=== PATIENT | male | born 1950 | race Caucasian/White ===

== ENCOUNTER 2023-09-25 22:00 | Inpatient (IN) | payer MEDICARE, SELFPAY ==
[2023-09-25 17:19] VITALS: BP 128/84
[2023-09-25 17:37] LABS: % Basophils 0.6 % (0-2); % Eosinophils 3.3 % (0-6); % Immature Granulocytes 0.3 % (0-0.5); % Lymphocytes 18.7 % (20.5-51.1); % Monocytes 7.4 % (1.7-9.3); % Neutrophils 69.7 % (42.2-75.2); Absolute Basophils 0.1 10^3/uL (0-0.2); Absolute Eosinophils 0.3 10^3/uL (0-0.7); Absolute Lymphocytes 1.8 10^3/uL (1.2-3.4); Absolute Monocytes 0.7 10^3/uL (0.1-0.6); Absolute Neutrophils 6.6 10^3/uL (1.4-6.5); Hematocrit 37.2 % (39.0-52.0); Hemoglobin 12.6 g/dL (13.0-18.0); Mean Corp Hgb Conc. 33.9 g/dL (33.0-37.0); Mean Corpuscular Hgb 30.1 pg (27.0-31.0); Mean Corpuscular Volume 88.8 fL (80.0-94.0); Mean Platelet Volume 8.7 fL (7.4-10.4); Nucleated Red Blood Cells % 0 % (-); Platelet Count 178 10^3/uL (130-400); Red Blood Cell Count 4.19 10^6/uL (4.70-6.10); Red Cell Dist. Width 14.1 % (11.5-14.5); White Blood Cell Count 9.4 10^3/uL (4.8-10.8)
[2023-09-25 17:49] LABS: Lactic Acid 0.9 mmol/L (0.7-2.0)
[2023-09-25 17:51] LABS: ALT (SGPT) 27 U/L (0-50); AST (SGOT) 35 U/L (17-59); Albumin 4.2 g/dl (3.5-5.0); Alkaline Phosphatase 64 U/L (38-126); Blood Urea Nitrogen 17 mg/dl (9-20); Calcium 9.3 mg/dl (8.4-10.2); Carbon Dioxide 28 mmol/L (22-30); Chloride 102 mmol/L (98-107); Glucose 116 mg/dl (70-99); Sodium 137 mmol/L (135-145); Total Bilirubin 1.1 mg/dl (0.2-1.3); Total Protein 7.1 g/dl (6.3-8.2); eGFR > 60.00
--- NOTE | 2023-09-25 19:45 | ED.GENMED ---
History of Present Illness
<DEBORAH Lucas - Last Filed: 09/25/23 21:07>
General
Chief Complaint: Skin Problem
Source: patient
Exam Limitations: none
Time Seen by Provider: 09/25/23 19:27
Nursing documentation reviewed up to this point in time: agreed with
Travel History
Have you had any contact with someone who has COVID-19?: No
Do you have any symptoms of coronavirus? Fever > 100 degrees, chills, cough, shortness of breath, sore throat, loss of taste or smell, muscle aches, or headache?: No
History of Present Illness
History of Present Illness:
Patient is a 73-year-old male history of mitral valve prolapse who presents to the ER for evaluation. 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 Several days ago patient started with pain and redness to the
area he saw PAC at dermatology office yesterday and was prescribed doxycycline. He has taken a total of 3 doses however he reports symptoms have gotten worse. He complains of increasing redness swelling and pain to the area. He denies any fever
or chills.
Past History
<DEBORAH Lucas - Last Filed: 09/25/23 21:07>
Past History
ED Past Medical History: Other (Mitrol valve problems)
ED Past Surgical History: None
Social History
Tobacco: Non-smoker
Alcohol: Occasional
Personal: Single (Lives with someone for the past 20 years)
Living: with family
Review of Systems
<DEBORAH Lucas - Last Filed: 09/25/23 21:07>
Review of Systems
Allergies reviewed?: Yes
All Other Systems: ROS reviewed and negative except as documented in HPI and ROS
Constitutional: Reports no symptoms; Denies fever, fatigue or chills
: Reports no symptoms
Musculoskeletal: Reports no symptoms
Skin: Reports other ( pain redness to surgical site on right back )
Neurological: Reports no symptoms
Psychiatric: Reports no symptoms
Phy Exam
<DEBORAH Lucas - Last Filed: 09/25/23 21:07>
General Physical Exam
General Presentation: no apparent distress
General age: appears stated age
General Skin: warm and dry
General Habitus: normal
General Mental: alert
General Hydration: appears well hydrated
Neurological Exam
Neurological Exam: alert and oriented x3
Renuka Coma Scale
Eye Opening: Spontaneous
Verbal Response: Oriented
Motor Response: Obeys Commands
GCS Total Score: 15
Musculoskeletal Exam
Musculoskeletal Exam: full ROM
Skin Exam
Skin Exam: normal color, warm/dry and other (Patient with surgical wound to right mid to lower back with sutures in place no dehiscence or drainage however obvious swelling induration and erythema surrounding wound)
Psychiatric Exam
Psychiatric Exam: normal mood/affect
<Rodriguez Hanley MD - Last Filed: 09/25/23 22:00>
Renuka Coma Scale
GCS Total Score: 15
Course
<DEBORAH Lucas - Last Filed: 09/25/23 21:07>
Orders/Labs/Results
Orders:
Orders
09/25/23 17:24
Complete Blood Count/With Diff Urgent
Comprehensive Metabolic Panel Urgent
Lactic Acid Q4H
Comment: ON ICE, CANCEL 2ND ORDER IF FIRST LACTIC ACID LEVEL <2
Blood Culture Q30M
STEPHIE Source: Blood/Venous
Specimen Description:
Comment: FROM 2 SEPARATE SITES
09/25/23 20:30
Blood Culture Q30M
STEPHIE Source: Blood/Venous
Specimen Description:
Comment: FROM 2 SEPARATE SITES
09/25/23 21:20
CeFAZolin 1 GRAM [Ancef] 1 gram in 5 ml IV NOW
09/25/23 21:38
Admit/Transfer Patient As Directed
Co-Sign Provider:
Level of Care: Inpatient admission
Assign to:: Medical/Surgical
Physician / Group: htay
Diagnosis: SSTI of surgical site at Rt mid to lower back - failed OP PO Doxycycline
Reason for Hospitalization: SSTI of surgical site at Rt mid to lower back - failed OP PO Doxycycline
Expected length of stay greater than two midnights?: Yes
ELOS- Estimated Length of Stay in days: 3
I certify the patient meets the requirements for IP care: Yes
09/25/23 21:39
Code Status As Directed
Resuscitation Status: Full Code
Abnormal Lab Results
09/25/23
17:24
RBC 4.19 L 10^6/uL
(4.70-6.10)
Hgb 12.6 L g/dL
(13.0-18.0)
Hct 37.2 L %
(39.0-52.0)
Absolute Neuts (auto) 6.6 H 10^3/uL
(1.4-6.5)
Absolute Monos (auto) 0.7 H 10^3/uL
(0.1-0.6)
Lymphocytes % 18.7 L %
(20.5-51.1)
Glucose 116 H mg/dl
(70-99)
09/25/23 17:24
09/25/23 17:24
Vital Signs
Initial and Last Documented VS:
Initial Vital Signs
Temp Pulse Resp BP Pulse Ox
98.3 F 77 17 128/84 98
09/25/23 17:19 09/25/23 17:19 09/25/23 17:19 09/25/23 17:19 09/25/23 17:19
Last Documented Vital Signs
Temp Pulse Resp BP Pulse Ox
98.3 F 67 18 139/70 98
09/25/23 17:19 09/25/23 21:30 09/25/23 21:30 09/25/23 21:30 09/25/23 21:30
Supervisor S[employer] consulted with Physician
Supervisor S[employer] consulted with physician?: Yes
Name of Physician Consulted: Dayan
<Rodriguez Hanley MD - Last Filed: 09/25/23 22:00>
Orders/Labs/Results
Orders:
Orders
09/25/23 17:24
Complete Blood Count/With Diff Urgent
Comprehensive Metabolic Panel Urgent
Lactic Acid Q4H
Comment: ON ICE, CANCEL 2ND ORDER IF FIRST LACTIC ACID LEVEL <2
Blood Culture Q30M
STEPHIE Source: Blood/Venous
Specimen Description:
Comment: FROM 2 SEPARATE SITES
09/25/23 20:30
Blood Culture Q30M
STEPHIE Source: Blood/Venous
Specimen Description:
Comment: FROM 2 SEPARATE SITES
09/25/23 21:20
CeFAZolin 1 GRAM [Ancef] 1 gram in 5 ml IV NOW
09/25/23 21:38
Admit/Transfer Patient As Directed
Co-Sign Provider:
Level of Care: Inpatient admission
Assign to:: Medical/Surgical
Physician / Group: htay
Diagnosis: SSTI of surgical site at Rt mid to lower back - failed OP PO Doxycycline
Reason for Hospitalization: SSTI of surgical site at Rt mid to lower back - failed OP PO Doxycycline
Expected length of stay greater than two midnights?: Yes
ELOS- Estimated Length of Stay in days: 3
I certify the patient meets the requirements for IP care: Yes
09/25/23 21:39
Code Status As Directed
Resuscitation Status: Full Code
Abnormal Lab Results
09/25/23
17:24
RBC 4.19 L 10^6/uL
(4.70-6.10)
Hgb 12.6 L g/dL
(13.0-18.0)
Hct 37.2 L %
(39.0-52.0)
Absolute Neuts (auto) 6.6 H 10^3/uL
(1.4-6.5)
Absolute Monos (auto) 0.7 H 10^3/uL
(0.1-0.6)
Lymphocytes % 18.7 L %
(20.5-51.1)
Glucose 116 H mg/dl
(70-99)
09/25/23 17:24
09/25/23 17:24
Vital Signs
Initial and Last Documented VS:
Initial Vital Signs
Temp Pulse Resp BP Pulse Ox
98.3 F 77 17 128/84 98
09/25/23 17:19 09/25/23 17:19 09/25/23 17:19 09/25/23 17:19 09/25/23 17:19
Last Documented Vital Signs
Temp Pulse Resp BP Pulse Ox
98.3 F 67 18 139/70 98
09/25/23 17:19 09/25/23 21:30 09/25/23 21:30 09/25/23 21:30 09/25/23 21:30
<DEBORAH Lucas - Last Filed: 09/25/23 21:07>
MDM/Problems Addressed
Differential Diagnosis Includes:
Not limited to cellulitis
MDM/Problems Addressed:
Patient is a 73-year-old male status post squamous cell cancer removed from right back 1 week ago start with days ago started on doxycycline yesterday for total of 3 doses but complete pain swelling redness. No fevers. Patient is nontoxic however
there is significant induration and erythema surrounding the area no drainage from suture site no dehiscence.
Patient eval by Dr. Hanley.
I attempted to reach his surgeon DR Beltran [place] . I spoke with commissioned police officer at [facility] who spoke with DR Gaviria who recommends admission and iv antibx.
<DEBORAH Lucas - Last Filed: 09/25/23 21:07>
*Pulse Oximetry
Patient hypoxic: no
*Critical Care Note
Total Time (30-74mins, 75-104mins- exclusive of procedures): Not Applicable
ED Attending Note
<DEBORAH Lucas - Last Filed: 09/25/23 21:07>
-
Portions of this chart may have been created with voice recognition software.� Occasional wrong word or��sound alike� substitutions may have occurred due to the inherent limitations of voice recognition software.
<Rodriguez Hanley MD - Last Filed: 09/25/23 22:00>
ED Attending Note
Patient seen and examined by attending physician: Yes
ED Attending Note:
Patient status post right squamous cell carcinoma removed from his right mid back at [facility] 1 week ago, presents to ED secondary to worsening pain, swelling, and redness over the past 3 days at incision site. Patient was seen by his
stunner animal yesterday and was prescribed doxycycline. Denies fever or chills. Denies nausea or vomiting. Denies open drainage.
Physical Exam
General: mild distress, not acutely ill. afebrile
Head: nc/at. eomi
Neck: supple. no meningeal signs.
Neuro: alert and oriented. no focal neurological deficits
Skin: sutures noted over right midback with surrounding erythema/swelling/tenderness, approx 5cm x 2cm. no open drainage.
Psychiatric: well kept. interactive and cooperative
Extremities: no edema. no calf tenderness.
Patient with worsening cellulitic changes with area of induration concerning for development of abscess. Patient will be admitted for IV antibiotics, failed outpatient therapy.
Discharge Plan
Departure
Patient Disposition: Admit
Date of Disposition: 09/25/23
Time of Disposition: 21:06
Admit to: Med/Surg
Admit to doctor: hospitalist
Presentation/result/management discussed w/ accepting MD/DO: Hospitalist
Patient with high blood pressure during this ER visit?: No
Condition: Fair
Covid-19: Not Applicable
Discharge Problem:
Cellulitis, wound, post-operative
Prescriptions:
No Action
multivitamin Tablet
1 tab PO DAILY
omeprazole 20 mg capsule,delayed release(DR/EC)
20 mg PO DAILY
doxycycline hyclate 100 mg tablet
100 mg PO BID
rosuvastatin 10 mg tablet
10 mg PO HS
icosapent ethyl [Vascepa] 1 gram capsule
1 g PO QID
Referrals:
Roman Milton MD [Family Provider] -
Interventions
Interventions:
*Risk Screen - Suicide Last Done: 09/25/23 20:05
*General Assessment Last Done: 09/25/23 20:05
*Neglect/Abuse Screening Last Done: 09/25/23 20:05
ED- Fall Risk Assessment Last Done: 09/25/23 20:05
ED-Skin Assessment Last Done: 09/25/23 20:05
Discharge Date and Time
Print Language: IVORIAN
[2023-09-25 21:15] VITALS: BMI 24.1
[2023-09-25 21:30] VITALS: BP 139/70
[2023-09-25] MEDS: ANCEF 5 IV (21:31)
--- NOTE | 2023-09-25 21:33 | HPS.HSE ---
Family Physician
-
Family Physician: Roman Milton
Chief Complaint
-
pain and redness at surgical started 3-4 days after MOHS surgery
History of Present Illness
73M HX MVR , recent MOHS surgery at Rt lower back for removal of squamous cell carcinoma 1 week ago
Seen at ER for evaluation of pain and redness at surgical site
- pain and redness started 3-4 days after MOHS surgery
- Seen at Derm surgeon and started on PO Doxycycline.
- No progress made s/p 3 doses of PO Doxy and came to ER
- Reports worsening f increasing redness swelling and pain to the area.
- No fever or chills.
Medical History
Past Medical History
Past Medical History: Reports None
Past Surgical History: Reports Other (recent MOHS surgery at Rt lower back for removal of squamous cell carcinoma )
Social History
Tobacco: Non-smoker
Alcohol: None
Drug: None
Family History
Family History: Not pertinent
Allergies / Home Medications
Allergies reflects when Allergies were last updated in [employer].
Home Medications with original date entered in [employer]
Allergy/Medication List:
Allergies
Allergy/AdvReac Type Severity Reaction Status Date / Time
amoxicillin [From Augmentin] Allergy Unknown Verified 09/25/23 21:07
clavulanic acid Allergy Unknown Verified 09/25/23 21:07
[From Augmentin]
Sulfa (Sulfonamide Allergy Unknown Verified 09/25/23 21:14
Antibiotics)
sulfamethoxazole Allergy Unknown Verified 09/25/23 21:14
trimethoprim Allergy Unknown Verified 09/25/23 21:14
Home Medications
doxycycline hyclate 100 mg tablet 100 mg PO BID 09/25/23
icosapent ethyl 1 gram capsule (Vascepa) 1 g PO QID 09/25/23
multivitamin 1 tab PO DAILY 09/25/23
omeprazole 20 mg capsule,delayed release 20 mg PO DAILY 09/25/23
rosuvastatin 10 mg tablet 10 mg PO HS 09/25/23
Review of Systems
-
Constitutional: Reports No Symptoms
EENT: Reports No Symptoms
Respiratory: Reports No Symptoms
Cardiac: Reports No Symptoms
Abdomen/GI: Reports No Symptoms
: Reports No Symptoms
Musculoskeletal: Reports No Symptoms
Skin: Reports See HPI
Neurological: Reports No Symptoms
Endocrine: Reports No Symptoms
Hematologic/Lymphatic: Reports No Symptoms
Psych: Reports No Symptoms
Physical Exam
Vital Signs
Vital Signs
Temp Pulse Resp BP Pulse Ox
98.3 F 77 17 128/84 98
09/25/23 17:19 09/25/23 17:19 09/25/23 17:19 09/25/23 17:19 09/25/23 17:19
Physical Exam
General: No Apparent Distress, Comfortable and Conversant
HEENT: NormoCephalic, Anicteric and Moist mucous membranes
Respiratory: Clear; No Wheezes, Rales or Rhonchi
Cardiac: S1/S2 and Regular Rhythm
GI: Soft, Non Tender, Non Distended and Normal Bowel Sounds
Genito-urinary: Deferred by me
Musculoskeletal: No Edema
Skin: Warm, Dry and Other (surgical wound to right mid to lower back with sutures in place no dehiscence or drainage however obvious swelling induration and erythema surrounding wound))
Neuro: AO x 3
Psych: Calm
Laboratory Results
-
09/25/23 17:24
09/25/23 17:24
Laboratory Results
Lactic Acid Cancelled 09/25/23 21:30
Total Bilirubin 1.1 mg/dl (0.2-1.3) 09/25/23 17:24
AST 35 U/L (17-59) 09/25/23 17:24
ALT 27 U/L (0-50) 09/25/23 17:24
Alkaline Phosphatase 64 U/L (38-126) 09/25/23 17:24
Data Reviewed
-
Lab Data: Labs Reviewed by me
Old Records: Reviewed
Impression/Plan
-
Reviewed VS: unremarkable
Data
nl WCC
Hgb 12.6 - bl is 14
nl CMP
BCx sent
NO PRIOR hospitalist admission
ASSESSMENT & PLAN
Pending Rx reconciliation
SSTI of surgical site at Rt mid to lower back - failed OP PO Doxycycline
Sutures in place no dehiscence or drainage
S/P recent MOHS surgery at Rt lower back for removal of squamous cell carcinoma 1 week ago
- Denied prior HX POS MRSA screen
- P derm DR Gaviria/ [facility] who spoke with
- s/p IV Ancef at ER and tolerates well
- cont. IV cefazolin in place of PO Doxy
- f/u BCx
HLD on Rosuvastatin
GERD on PO PPI
DVT Px: Ad yung
Code: full code
IP MS
[2023-09-25] MEDS: CRESTOR 10 MG PO (23:35)
[2023-09-26 06:36] LABS: Hematocrit 37.1 % (39.0-52.0); Hemoglobin 12.2 g/dL (13.0-18.0); Mean Corp Hgb Conc. 32.9 g/dL (33.0-37.0); Mean Corpuscular Hgb 30.3 pg (27.0-31.0); Mean Corpuscular Volume 92.3 fL (80.0-94.0); Mean Platelet Volume 9.3 fL (7.4-10.4); Platelet Count 167 10^3/uL (130-400); Red Blood Cell Count 4.02 10^6/uL (4.70-6.10); Red Cell Dist. Width 14.2 % (11.5-14.5); White Blood Cell Count 7.7 10^3/uL (4.8-10.8)
[2023-09-26] MEDS: THERAGRAN 1 TABLET PO (08:25)
[2023-09-26 08:26] VITALS: BP 128/87
[2023-09-26] MEDS: ANCEF 5 IV (10:17)
--- NOTE | 2023-09-26 13:04 | W.PN.HOSP.TC ---
Today's Communication/Plan
-
Switch antibiotics to IV vancomycin.
MRSA screen.
Follow culture data.
Assessment / Plan
Assessment / Plan
SSTI of surgical site at Rt mid to lower back - failed OP PO Doxycycline
Sutures in place no dehiscence or drainage
S/P recent MOHS surgery at Rt lower back for removal of squamous cell carcinoma 1 week ago
- Pt today tells me of possibilty of prior MRSA infection
- P derm DR Gaviria/ [facility] who spoke with
- s/p IV Ancef at ER
- Switch abx to IV Vanco pending cx data;MRSA screen
- f/u BCx
HLD on Rosuvastatin
GERD on PO PPI
DVT Px: Ad yung
Code: full code
Anticipated Discharge: > 48 hours
Subjective/Interval History
-
Date of Service: September 26, 2023
No fevers or chills today.
Denies any nausea vomiting.
Persistent pain over the incision site.
Objective Data
-
Labs:
Laboratory Results
09/26/23
06:00
WBC 7.7
Hgb 12.2 L
Hct 37.1 L
Plt Count 167
Vital Signs:
Vital Signs
Temp Pulse Resp BP Pulse Ox
98.2 F 67 14 128/87 98
09/26/23 08:26 09/26/23 08:26 09/26/23 08:26 09/26/23 08:26 09/25/23 21:30
Review of Systems
-
Constitutional: Denies Fever
EENT: Denies Sore Throat
Respiratory: Denies Cough or Trouble Breathing
Cardiac: Denies Chest Pain
Abdomen/GI: Denies Abdominal Pain, Nausea or Vomiting
Neuro: Denies Dizzy
Physical Exam
-
General: No Apparent Distress
HEENT: Moist Mucous Membranes
Respiratory: Clear to Auscultation and Non Labored Respirations; Negative Accessory Resp Muscle Use
GI: Soft
Skin: Other (Right lower posterior chest wall incision site swelling and redness noted. There is more swelling towards the lateral part of the incision. Incision suture line itself is clean without any discharge.)
Neuro: AO x 3
Data Reviewed
-
Labs: Labs Reviewed by me
[2023-09-26] MEDS: VANCOCIN 540 MG IV (13:12)
--- NOTE | 2023-09-26 13:13 | PHA.VAN.IN ---
Assessment
- Assessment
Renal Function: Appears similar to baseline
Concomitant Antimicrobials: no pertinent antibiotic allergies
AUC Dosing Plan
- Dosing Variables
Dosing Weight (kg): 76
Dosing CrCl (ml/min): 75
Vd coefficient (L/kg): 0.7
- Empiric Dosing
Initial / Loading Dose: 2000mg - 09/25 13:12
Maintenance Regimen: Vanc 750mg Q12H starting 09/26 06
Estimated AUC (mcg*h/mL): 437
Estimated Peak (mcg*h/mL): 25.6
Estimated Trough (mcg/ml): 12.3
Estimated Half Life (H): 10.4
- Monitoring
No levels ordered at this time: consider levels in next few days
Pharmacokinetics Vancomycin I
- -
Patient Age: 73
Patient Sex: Male
Vancomycin Day #: 1
Indication: Skin And Soft Tissue
Requesting Provider: Dr. Cueto
Pertinent Antimicrobial Allergies:
amoxicillin/clavulanic acid - unknown
sulfonamide antibiotics - unknown
Height / Weight:
Height 5 ft 10 in
Actual Weight 76.204 kg
Pertinent Past Medical History: recent MOHS surgery
- Vital Signs / Lab Results
Temp Pulse Resp BP Pulse Ox
98.2 F 67 14 128/87 98
09/26/23 08:26 09/26/23 08:26 09/26/23 08:26 09/26/23 08:26 09/25/23 21:30
Lab Results - Hematology
09/25/23 09/26/23
17:24 06:00
WBC 9.4 7.7
Lab Results - Chemistry
09/25/23
17:24
BUN 17
Creatinine 0.9
Albumin 4.2
09/25/23 09/25/23
17:24 21:30
Lactic Acid 0.9 Cancelled
[2023-09-26 14:57] VITALS: BP 113/79
[2023-09-26] MEDS: VANCOCIN 150 IV (18:21)
[2023-09-26 19:58] VITALS: BP 136/73
[2023-09-26] MEDS: TYLENOL 650 MG PO (19:58)
[2023-09-26 19:59] VITALS: BMI 24.3
--- NOTE | 2023-09-26 20:00 | PTCARENOTE ---
no delay received. aaox3. pt ambulated from to rm [id number]. vss. tylenol admin for right back pain. swelling and erythema noted to wound. sutures remain intact. pt updated on plan of care. call caal in reach. will monitor.
[2023-09-26] MEDS: CRESTOR 10 MG PO (22:23)
[2023-09-26 23:47] VITALS: BP 114/71
[2023-09-27] MEDS: VANCOCIN 150 IV ×2 (05:51→17:18)
[2023-09-27] MEDS: TYLENOL 650 MG PO ×3 (06:35→21:19)
[2023-09-27 07:15] VITALS: BP 116/66
--- NOTE | 2023-09-27 07:58 | PHA.VAN.FU ---
Addendum entered and electronically signed by Ana M Voss [facility] 09/27/23 15:31:
BUN & SCR ordered per protocol
Original Note:
Vancomycin Assessment / Plan
- Assessment
Renal Function: No New Labs Today
In the past 24 hrs, patient has been: Afebrile
- Dosing Plan
Continue: Vanc 750mg Q12H
- Monitoring Plan
No level(s) ordered at this time: consider levels in next few days
- Follow Up
Pharmacy will continue to follow.
Vancomycin Follow UP
- -
Patient Age: 73
Patient Sex: Male
Vancomycin Day #: 2
Indication: Skin And Soft Tissue
Requesting Provider: Dr. Cueto
Pertinent Antimicrobial Allergies:
amoxicillin/clavulanic acid - unknown
sulfonamide antibiotics - unknown
Height / Weight:
Height 5 ft 10 in
Actual Weight 76.771 kg
Pertinent Past Medical History: recent MOHS surgery
- Vital Signs / Lab Results
Temp Pulse Resp BP Pulse Ox
97.5 F 62 18 116/66 97
09/27/23 07:15 09/27/23 07:15 09/27/23 07:15 09/27/23 07:15 09/27/23 07:15
Lab Results - Hematology
09/25/23 09/26/23
17:24 06:00
WBC 9.4 7.7
Lab Results - Chemistry
09/25/23
17:24
BUN 17
Creatinine 0.9
Albumin 4.2
09/25/23 09/25/23
17:24 21:30
Lactic Acid 0.9 Cancelled
Microbiology Results
09/25/23 23:40 Blood Culture - Preliminary
Blood/Venous No Growth in 24 hours- Final report to follow
09/25/23 17:24 Blood Culture - Preliminary
Blood/Venous No Growth in 24 hours- Final report to follow
[2023-09-27] MEDS: THERAGRAN 1 TABLET PO (09:02)
--- NOTE | 2023-09-27 11:08 | W.PN.HOSP.TC ---
Today's Communication/Plan
-
Consult general surgery for I&D
Follow wound culture data
Continue with IV vancomycin
Assessment / Plan
Assessment / Plan
SSTI of surgical site at Rt mid to lower back - failed OP PO Doxycycline
S/P recent MOHS surgery at Rt lower back for removal of squamous cell carcinoma 1 week ago
- hx possibilty of prior MRSA infection
- P derm DR Gaviria/ [facility] who spoke with
- Not bacteremic so far
-Continue IV vancomycin. Follow wound culture data.
-Consult general surgery for I&D
HLD on Rosuvastatin
GERD on PO PPI
DVT Px: Ad yung
Code: full code
Anticipated Discharge: Within 24 hours
Subjective/Interval History
-
Date of Service: September 27, 2023
no fever or chills.
Still persistent pain with the wound.
Objective Data
-
Vital Signs:
Vital Signs
Temp Pulse Resp BP Pulse Ox
97.5 F 62 18 116/66 97
09/27/23 07:15 09/27/23 07:15 09/27/23 07:15 09/27/23 07:15 09/27/23 07:15
Review of Systems
-
Constitutional: Denies Fever
Respiratory: Denies Trouble Breathing
Cardiac: Denies Chest Pain
Abdomen/GI: Denies Nausea or Vomiting
Neuro: Denies Dizzy
Physical Exam
-
General: Comfortable
Respiratory: Non Labored Respirations; Negative Accessory Resp Muscle Use
Musculoskeletal: Other (left medial elbow area - small area of infiltrate with mild tenderness noted. No redness noted- follow clinically.)
Skin: Other (Surgical wound of the back - now softer in lower lateral part of wound and i see a ooze of pus from lower suture site. Still red and tender .)
Neuro: AO x 3
Data Reviewed
-
Labs: Labs Reviewed by me
--- NOTE | 2023-09-27 12:46 | CON.GS ---
Addendum entered and electronically signed by Daron Wade MD 09/27/23 13:50:
Patient seen and examined.
Patient is a 73 yo M POD#9 s/p Mohs procedure as an outpatient with a Gamer for SCC. He noted pain and redness to the site beginning about 3-4 days after the procedure and was re-evaluated at his Gamer's clinic and prescribed
Doxycycline. He noted worsening symptoms over the next 24 hours despite use of antibiotics and presented through the ED for evaluation. He was on IV Ancef initially without much benefit and was transitioned to IV Vancomycin given a questionable
history of MRSA infection in the past. Today, after showering, the distal end of the surgical wound began oozing purulent fluid. There is surrounding erythema and tenderness noted. He denies fevers or chills. He has had no leukocytosis.
Gen: NAD
Back: incision site with swelling, erythema, tenderness, mild purulent drainage laterally, interrupted Prolene, skin well approximated
Patient is a 73 yo M POD#9 s/p Mohs excision p/w wound infection
Postoperative skin and subcutaneous wound infection. Failure of medical management with antibiotics. Recommend surgical drainage (see separate note). The procedure itself, as well as the risks, benefits and alternatives was discussed. Verbal
consent obtained. All questions answered.
--Removal of sutures and drainage of back abscess
--ABX as per primary team, wound culture pending
--Daily wound ca I have cultures that just re with iodoform packing to site, cover with dry gauze dressing
--Follow-up with Gamer
Original Note:
Consultation
-
Date/Time Consultation Requested: 09/27/23 1106
Requesting Provider: Rom
Reason for Consultation: Surigical wound abscess
Medical History
-
Chief Complaint: back discomfort
History of Present Illness:
This is a 73 yo male s/p recent MOHs procedure to his right lower back as an outpatient with dermatology for management of SCC about 9 days ago. He noted pain and redness to the site beginning about 3-4 days after the procedure and was reevaluated
at his care coordinator's clinic and prescribed doxycycline. He noted worsening symptoms over the next 24 hours despite use of antibiotics and presented through the ED for evaluation. He was on IV Ancef initially without much benefit and was
transitioned to IV vancomycin given history of ?MRSA infection in the past. Today, after showering, the distal end of the surgical wound began oozing purulent fluid. There is surrounding erythema and tenderness noted. He denies fevers or chills. He
has had no leukocytosis.
Past Medical History
Past Medical History: Cancer (SCC of the skin s/p MOHS), GERD, Hypercholesterolemia and Valvular Disease (MV prolapse)
Past Surgical History: Hernia Repair (right inguinal), Orthopedic (for patellar fx) and Other (MOHS procedure 08/2023)
Social History
Tobacco: Non-Smoker
Family History
Family History: Reviewed & Not Pertinent
Allergies / Home Medications
Allergy/AdvReac Type Severity Reaction Status Date / Time
amoxicillin [From Augmentin] Allergy Unknown Verified 09/25/23 21:07
clavulanic acid Allergy Unknown Verified 09/25/23 21:07
[From Augmentin]
Sulfa (Sulfonamide Allergy Unknown Verified 09/25/23 21:14
Antibiotics)
sulfamethoxazole Allergy Unknown Verified 09/25/23 21:14
trimethoprim Allergy Unknown Verified 09/25/23 21:14
�Medication �Instructions �Recorded �Confirmed �Type
doxycycline hyclate 100 mg tablet 100 mg PO BID Infection 09/25/23 09/25/23 History
icosapent ethyl 1 gram capsule 1 g PO QID High Cholesterol 09/25/23 09/25/23 History
(Vascepa)
multivitamin 1 tab PO DAILY Supplement 09/25/23 09/25/23 History
omeprazole 20 mg capsule,delayed 20 mg PO DAILY Gastrointestinal 09/25/23 09/25/23 History
release Issue
rosuvastatin 10 mg tablet 10 mg PO HS High Cholesterol 09/25/23 09/25/23 History
Review of Systems
-
History Source: Patient
All other systems: Negative unless noted
A 10 point review of systems was completed, and was negative except as per HPI.
Physical Exam
Vital Signs
Temp Pulse Resp BP Pulse Ox
97.5 F 62 18 116/66 97
09/27/23 07:15 09/27/23 07:15 09/27/23 07:15 09/27/23 07:15 09/27/23 08:00
09/26/23 09/27/23 09/28/23
06:59 06:59 06:59
Actual Weight 76.204 kg 76.771 kg
Body Mass Index (BMI) 24.3
Lab Results
09/26/23 06:00
09/25/23 17:24
WBC 7.7 10^3/uL (4.8-10.8) 09/26/23 06:00
Hgb 12.2 g/dL (13.0-18.0) L 09/26/23 06:00
Hct 37.1 % (39.0-52.0) L 09/26/23 06:00
Plt Count 167 10^3/uL (130-400) 09/26/23 06:00
Abs Immat Gran (auto) 0.0 10^3/uL (0-0.05) 09/25/23 17:24
Neutrophils % 69.7 % (42.2-75.2) 09/25/23 17:24
Physical Exam
General: Well Developed, Well Nourished and No Apparent Distress
HEENT: Moist Mucous Membranes
Respiratory: Non Labored Respirations
GI: Soft and Non Tender
Skin: Warm, Dry and Other (right back with lateral incision closed simple interrupted sutures. Erythema noted with induration. )
Neuro: Awake, Alert and AO x 3
Psych: Calm
Assessment / Plan
-
This is a 73 yo male s/p recent MOHs procedure to his right lower back as an outpatient with dermatology for management of SCC about 9 days ago. He noted pain and redness to the site beginning about 3-4 days after the procedure and was reevaluated
at his care coordinator's clinic and prescribed doxycycline. Not much benefit over 24 hours after initiation causing him to present. He was initially on Ancef and now on vancomycin for broader coverage. AFVSS. Labs without leukocytosis.
--Several sutures removed from incision with I&D done at bedside with manjula pus noted (see surgeon's note for full details)
--Send wound culture
--ABX as per primary team
--Daily wound care with iodoform packing to site, cover with dry gauze dressing
--- NOTE | 2023-09-27 13:50 | W.PN.SURGUPD ---
Surgical Update
Surgical Update
Drainage of skin and subcutaneous abscess of back following Mohs procedure.
Area was prepped using Betadine. RIGHT lateral sutures removed x 3. Upon probing of the wound with Q-tip releasing significant amount of purulence. Culture obtained. Opening into abscess pocket > 1 cm. Medial 2 Prolene sutures remain in place.
Compression used to evacuate purulence. Wound irrigated with saline. Corner of gauze 4 x 4 packed into wound. Dressing in the form of gauze and tape was applied. Patient tolerated the procedure well though with some discomfort.
-- Daily dressing changes with Iodoform packing covered with gauze and tape
-- Abx per Hospitalist, wound culture obtained
-- Outpatient follow-up with Dermatology
[2023-09-27 15:00] VITALS: BP 127/67
--- NOTE | 2023-09-27 16:48 | CM ---
Addendum entered by Esme Delgado 09/27/23 16:58:
Patient does not want his doing any wound care. CM explained that VN are generally 2-3x/week. Frequency of wound care TBD.
Original Note:
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
hospitalizations. Pharmacy is [facility] on [facility] [place] in [place] and PCP is Dr. Roman Milton. Anticipate will need VN for wound care. Agreeable to [facility] VN. Referral will be forwarded.
[2023-09-27] MEDS: FLUSH (NSS) 2 FLUSH IV (17:20)
[2023-09-27] MEDS: CRESTOR 10 MG PO (21:17)
[2023-09-27 23:18] VITALS: BP 121/66
[2023-09-28] MEDS: VANCOCIN 150 IV ×2 (05:49→17:01)
[2023-09-28 06:12] LABS: Blood Urea Nitrogen 18 mg/dl (9-20); Estimated Creatinine Clearance 85 ml/min
[2023-09-28 06:55] VITALS: BP 115/66
--- NOTE | 2023-09-28 08:44 | PHA.VAN.FU ---
Vancomycin Assessment / Plan
- Assessment
Renal Function: Stable
WBC's are: WNL
In the past 24 hrs, patient has been: Afebrile
- Dosing Plan
Continue: Vanc 750 mg q12
- Monitoring Plan
Peak Level: 09/27 2029
Trough Level: 09/28 0430
- Follow Up
Pharmacy will continue to follow.
Vancomycin Follow UP
- -
Patient Age: 73
Patient Sex: Male
Vancomycin Day #: 3
Indication: Skin And Soft Tissue
Requesting Provider: Dr. Cueto
Pertinent Antimicrobial Allergies:
amoxicillin/clavulanic acid - unknown
sulfonamide antibiotics - unknown
Height / Weight:
Height 5 ft 10 in
Actual Weight 76.771 kg
Pertinent Past Medical History: recent MOHS surgery
- Vital Signs / Lab Results
Temp Pulse Resp BP Pulse Ox
97.6 F 59 16 115/66 95
09/28/23 06:55 09/28/23 06:55 09/28/23 06:55 09/28/23 06:55 09/28/23 06:55
Lab Results - Hematology
09/25/23 09/26/23
17:24 06:00
WBC 9.4 7.7
Lab Results - Chemistry
09/25/23 09/28/23
17:24 04:23
BUN 17 18
Creatinine 0.9 0.8
Estimated Creat Clear 85
Albumin 4.2
09/25/23 09/25/23
17:24 21:30
Lactic Acid 0.9 Cancelled
Microbiology Results
09/25/23 23:40 Blood Culture - Preliminary
Blood/Venous No Growth in 48 hours- Final report to follow
09/25/23 17:24 Blood Culture - Preliminary
Blood/Venous No Growth in 48 hours- Final report to follow
09/27/23 13:18 Gram Stain - Preliminary
Abscess
09/26/23 12:40 MRSA Screen - Final
Nose No Methicillin Resistant Staphylococcus aureus isolated.
09/27/23 11:31 Gram Stain - Preliminary
Back
[2023-09-28] MEDS: THERAGRAN 1 TABLET PO (09:37)
--- NOTE | 2023-09-28 14:53 | W.PN.HOSP.TC ---
Today's Communication/Plan
-
Continue with IV vancomycin
Follow-up wound culture data
DC planning
Assessment / Plan
Assessment / Plan
SSTI of surgical site at Rt mid to lower back - failed OP PO Doxycycline
S/P recent MOHS surgery at Rt lower back for removal of squamous cell carcinoma 1 week ago
- hx possibilty of prior MRSA infection
- P derm DR Gaviria/ [facility] who spoke with
- Not bacteremic so far
-Continue IV vancomycin. Follow wound culture data. Staph aureus in wound. Await sensitivities.
- S/P I&D
- Follow with Derm as OP
HLD on Rosuvastatin
GERD on PO PPI
DVT Px: Ad yung
Code: full code
Anticipated Discharge: Within 24 hours
Subjective/Interval History
-
Date of Service: September 28, 2023
Less pain from the wound after incision and drainage. No fever or chills.
Objective Data
-
Labs:
Laboratory Results
09/28/23
04:23
BUN 18
Creatinine 0.8
Vital Signs:
Vital Signs
Temp Pulse Resp BP Pulse Ox
97.6 F 59 16 115/66 95
09/28/23 06:55 09/28/23 06:55 09/28/23 06:55 09/28/23 06:55 09/28/23 06:55
I&O
09/27/23 09/28/23 09/29/23
06:59 06:59 06:59
Intake Total 1230 / 1230 480 / 480
Balance 1230 / 1230 480 / 480
Review of Systems
-
Respiratory: Denies Trouble Breathing
Cardiac: Denies Chest Pain
Abdomen/GI: Denies Nausea, Vomiting or Diarrhea
Neuro: Denies Dizzy
Physical Exam
-
General: No Apparent Distress
HEENT: Moist Mucous Membranes
Respiratory: Non Labored Respirations; Negative Accessory Resp Muscle Use
Skin: Other (Wound improving - less induration and swelling;less tender; no active purulence from wound ;some old purulence on dressing noted)
Neuro: AO x 3
Data Reviewed
-
Labs: Labs Reviewed by me
[2023-09-28 15:10] VITALS: BP 128/75
[2023-09-28 20:46] LABS: Vancomycin Peak 21.5 ug/ml (18-26)
[2023-09-28] MEDS: CRESTOR 10 MG PO (21:54)
[2023-09-28] MEDS: TYLENOL 650 MG PO (22:06)
[2023-09-28 23:00] VITALS: BP 135/72
[2023-09-29] MEDS: VANCOCIN 150 IV (05:36)
[2023-09-29 06:37] LABS: Vancomycin Trough 12.6 ug/ml (5-20)
--- NOTE | 2023-09-29 07:27 | PHA.VAN.FU ---
Vancomycin Assessment / Plan
- Assessment
Renal Function: Stable
WBC's are: WNL
In the past 24 hrs, patient has been: Afebrile
- Assessment - Therapeutic Drug Monitoring
Extrapolated Cmax (mcg/mL): 24
Peak level was drawn: Appropriately
Extrapolated Cmin (mcg/mL): 12.9
Trough Drawn: Appropriately
Levels were drawn: At steady state
Calculated AUC (mcg*h/mL): 430
Calculated ke: 0.0561
Calculated half life (H): 12.3
Calculated Vd (L): 62.1
Calculated Vanc CL (ml/min): 58.1
- Dosing Plan
Continue: vancomycin 750 mg q12h
- Monitoring Plan
Level(s) appropriate: Recheck trough at minimum of weekly intervals, Repeat sooner for changes in renal function or clinical status
- Follow Up
Pharmacy will continue to follow.
Vancomycin Follow UP
- -
Patient Age: 73
Patient Sex: Male
Vancomycin Day #: 4
Indication: Skin And Soft Tissue
Requesting Provider: Dr. Cueto
Pertinent Antimicrobial Allergies:
amoxicillin/clavulanic acid - unknown
sulfonamide antibiotics - unknown
Height / Weight:
Height 5 ft 10 in
Actual Weight 76.771 kg
Pertinent Past Medical History: recent MOHS surgery
- Vital Signs / Lab Results
Temp Pulse Resp BP Pulse Ox
97.9 F 65 16 135/72 98
09/28/23 23:00 09/28/23 23:00 09/28/23 23:00 09/28/23 23:00 09/28/23 23:00
Lab Results - Chemistry
09/28/23
04:23
BUN 18
Creatinine 0.8
Estimated Creat Clear 85
Microbiology Results
09/27/23 13:18 Wound Culture - Preliminary
Abscess Staphylococcus aureus
Gram Stain - Preliminary
09/25/23 23:40 Blood Culture - Preliminary
Blood/Venous No Growth in 72 hours- Final report to follow
09/25/23 17:24 Blood Culture - Preliminary
Blood/Venous No Growth in 72 hours- Final report to follow
09/27/23 11:31 Wound Culture - Preliminary
Back Staphylococcus aureus
Gram Stain - Preliminary
09/26/23 12:40 MRSA Screen - Final
Nose No Methicillin Resistant Staphylococcus aureus isolated.
Therapeutic Drug Monitoring
Vancomycin Peak 21.5 ug/ml (18-26) 09/28/23 20:22
Vancomycin Trough 12.6 ug/ml (5-20) 09/29/23 05:28
[2023-09-29 07:49] VITALS: BP 109/69
[2023-09-29] MEDS: THERAGRAN 1 TABLET PO (07:49)
[2023-09-29 15:10] VITALS: BP 125/75
--- NOTE | 2023-09-29 15:11 | W.DS.TRANS ---
DC Summary - Percussion Tuner
-
Discharge Instructions:
Discharge Diagnosis/Procedures Infected surgical wound s/p I&D
Diet Regular
Activity As tolerated
Driving Restrictions As prior to admission
Bathing Restrictions None
Other Services VN
Instructions:
Stand-Alone Forms:
Changes to Home Medications: Yes
Discharge Medications:
DC Medications w/original date entered in bookjam
icosapent ethyl 1 gram capsule (Vascepa) 1 g PO QID High Cholesterol 09/25/23
multivitamin 1 tab PO DAILY Supplement 09/25/23
omeprazole 20 mg capsule,delayed release 20 mg PO DAILY Gastrointestinal Issue 09/25/23
rosuvastatin 10 mg tablet 10 mg PO HS High Cholesterol 09/25/23
acetaminophen 325 mg tablet 650 mg (2 x 325 mg) PO Q4HPRN PRN mild pain/CR[place]ORD/temp> 100.4F #1 tab 09/29/23
sulfamethoxazole 800 mg-trimethoprim 160 mg tablet (Bactrim DS) 1 tab PO BID #14 tabs 09/29/23
Home Medication Changes
New medication-Bactrim.
Pending Results: No
--- NOTE | 2023-09-29 15:14 | W.PN.HOSP.TC ---
Today's Communication/Plan
-
dc
Assessment / Plan
Assessment / Plan
SSTI of surgical site at Rt mid to lower back - failed OP PO Doxycycline
S/P recent MOHS surgery at Rt lower back for removal of squamous cell carcinoma 1 week ago
- hx possibilty of prior MRSA infection
- P derm DR Gaviria/ [facility] who spoke with
- Not bacteremic so far
- S/P I&D
-MSSA in the wound culture.-The patient had 48 hours of doxycycline without much improvement so would avoid that. He had confusion with Augmentin so would avoid that. Discussed about the Bactrim which is a good antibiotic for MSSA. His reaction
to Bactrim was a headache but no rash ,no tongue swelling, no breathing issues. He was agreeable to try Bactrim.
- Follow with Derm as OP
HLD on Rosuvastatin
GERD on PO PPI
DVT Px: Ad yung
Code: full code
DC home.
He has a dermatology appointment tomorrow.
Total discharge 32 minutes
Anticipated Discharge: Today
Subjective/Interval History
-
Date of Service: September 29, 2023
Feeling much improved with regards to pain from the wound. No fever or chills.
Objective Data
-
Vital Signs:
Vital Signs
Temp Pulse Resp BP Pulse Ox
97.6 F 62 16 109/69 97
09/29/23 07:49 09/29/23 07:49 09/29/23 07:49 09/29/23 07:49 09/29/23 07:49
I&O
09/28/23 09/29/23 09/30/23
06:59 06:59 06:59
Intake Total 1230 / 1230 2250 / 2250
Balance 1230 / 1230 2250 / 2250
Review of Systems
-
Respiratory: Denies Trouble Breathing
Cardiac: Denies Chest Pain
Abdomen/GI: Denies Nausea, Vomiting or Diarrhea
Neuro: Denies Dizzy
Physical Exam
-
General: No Apparent Distress and Comfortable
Skin: Other (Surgical wound with much lesser swelling and redness. Much improved tenderness.)
Psych: Calm
Data Reviewed
-
Labs: Labs Reviewed by me (wound cx)
--- NOTE | 2023-10-11 15:56 | W.DCSUMMARY ---
Discharge Summary
Discharge Data
Date of Admission: 09/25/23
Date of Discharge: 09/29/23
-
Pending Results: No
Hospital Course
primary diagnosis:
Right lower back infected post MOHS surgery s/p incision and drainage
Secondary diagnosis:
Hyperlipidemia
Gastroesophageal reflux disease
Hospital course:
patient had a MOHS surgery in the right lower back for removal of squamous cell carcinoma. He was put on oral doxycycline because of concern of infection but it got worse and came to the hospital. He had a purulent discharge coming from the lower
part of the wound so was seen by surgery and sutures were removed and had a local I&D done. Wound culture showed MSSA bacteria. He was not bacteremic. He did well post I&D. He was discharged home on oral Bactrim to follow-up dermatology for
further wound care.
Consultants on board:
General surgery Dr. Wade
Discharge Plan
-
Patient Disposition: Home with Home Care
Discharge Diagnosis/Procedures: Infected surgical wound s/p I&D
Condition: Good
Diet: Regular
Activity: As tolerated
Driving Restrictions: As prior to admission
Bathing Restrictions: None
Other Services: VN
Activity Restrictions/Additional Instructions:
Follow up with dermatology tomorrow as planned for the wound
pack wound with 1/4 inch iodoform packing and cover with dry gauze dressing daily and prn
Referrals:
Roman Milton MD [Family Provider] -
Prescriptions:
New
acetaminophen 325 mg Tablet
650 mg PO Q4HPRN PRN (Reason: mild pain/[place]ORD/temp> 100.4F) Qty: 1 0RF
sulfamethoxazole-trimethoprim [Bactrim DS] 800-160 mg tablet
1 tab PO BID Qty: 14 0RF
Rx Instructions:
stop if you develop rash or any other reactions including headache
(DME) iodoform 1/4 X 5 '-yard bandage
See Rx Instructions .Route Qty: 12 0RF
Rx Instructions:
As directed
(DME) gauze bandage 3 X 3 ' bandage
See Rx Instructions .Route Qty: 10 0RF
Rx Instructions:
As directed
Continued
multivitamin Tablet
1 tab PO DAILY
omeprazole 20 mg capsule,delayed release(DR/EC)
20 mg PO DAILY
rosuvastatin 10 mg tablet
10 mg PO HS
icosapent ethyl [Vascepa] 1 gram capsule
1 g PO QID
Discontinued
doxycycline hyclate 100 mg tablet
100 mg PO BID
Discharge Orders:
Discharge Patient (As Directed); Ordered 09/29/23
Ordered By: Celestino Cueto
Discharge Date and Time
Discharge Date/Time: 09/29/23 15:51
Print Language: STATELESS
== END 2023-09-29 15:51 | disposition home health service (06) | DRG 863 ==
LOC: 2 SOUTH 22:00
PROVIDERS: Student in an Organized Health Care Education/Training Program; ADMITTING PHYSICIAN Internal Medicine; ATTENDING PHYSICIAN Internal Medicine; CONSULT PHYSICIAN Surgery; EMERGENCY PHYSICIAN Emergency Medicine; FAMILY PHYSICIAN Internal Medicine Sports Medicine
PROC: 0J970ZX Drainage of Back Subcutaneous Tissue and Fascia, Open Approach, Diagnostic (ICD-10-PCS; 2023-09-27)
DX: T81.49XA Infection following a procedure, other surgical site, initial encounter (principal); I34.1 Nonrheumatic mitral (valve) prolapse; B95.61 Methicillin susceptible Staphylococcus aureus infection as the cause of diseases classified elsewhere; C44.529 Squamous cell carcinoma of skin of other part of trunk; Y83.8 Other surgical procedures as the cause of abnormal reaction of the patient, or of later complication, without mention of misadventure at the time of the procedure; E78.00 Pure hypercholesterolemia, unspecified; K21.9 Gastro-esophageal reflux disease without esophagitis; Z86.14 Personal history of Methicillin resistant Staphylococcus aureus infection; Z98.890 Other specified postprocedural states; Z88.3 Allergy status to other anti-infective agents; Z88.0 Allergy status to penicillin; Z88.1 Allergy status to other antibiotic agents; Z88.2 Allergy status to sulfonamides; Z79.899 Other long term (current) drug therapy
CPT/HCPCS: 80053; 80202; 82565; 83605; 84520; 85025; 85027; 87040; 87070; 87147; 87186; 87205; 96374; 99284

== ENCOUNTER → 2023-10-09 14:07 | Outpatient (REF) | payer MEDICARE, SELFPAY | LOC: RAD 14:07 | PROVIDERS: ATTENDING PHYSICIAN Internal Medicine Sports Medicine | DX: R91.8 Other nonspecific abnormal finding of lung field (principal) | CPT/HCPCS: 71046 ==

== ENCOUNTER → 2023-11-14 09:46 | Outpatient (REF) | payer MEDICARE, OTHER, SELFPAY ==
[2023-11-14 12:40] LABS: Hematocrit 36.8 % (39.0-52.0); Mean Corp Hgb Conc. 32.6 g/dL (33.0-37.0); Mean Corpuscular Hgb 29.8 pg (27.0-31.0); Mean Corpuscular Volume 91.3 fL (80.0-94.0); Platelet Count 132 10^3/uL (130-400); Red Blood Cell Count 4.03 10^6/uL (4.70-6.10); Red Cell Dist. Width 14.4 % (11.5-14.5); White Blood Cell Count 6.4 10^3/uL (4.8-10.8)
[2023-11-14 13:59] LABS: % Basophils 0.5 % (0-2); % Eosinophils 11.5 % (0-6); % Immature Granulocytes 0.3 % (0-0.5); % Lymphocytes 22.7 % (20.5-51.1); % Monocytes 10.7 % (1.7-9.3); % Neutrophils 54.3 % (42.2-75.2); Absolute Eosinophils 0.7 10^3/uL (0-0.7); Absolute Lymphocytes 1.5 10^3/uL (1.2-3.4); Absolute Monocytes 0.7 10^3/uL (0.1-0.6); Absolute Neutrophils 3.5 10^3/uL (1.4-6.5); Nucleated Red Blood Cells % 0 % (-)
== END ==
LOC: REG 09:46
PROVIDERS: ATTENDING PHYSICIAN Surgery; FAMILY PHYSICIAN Internal Medicine Sports Medicine
DX: R53.81 Other malaise (principal)
CPT/HCPCS: 36415; 85025

== ENCOUNTER 2024-05-13 17:43 | Emergency (ER) | payer MEDICARE, OTHER, SELFPAY ==
[2024-05-13 17:47] VITALS: BP 131/78
[2024-05-13 18:11] LABS: % Basophils 1.3 % (0-2); % Eosinophils 6.9 % (0-6); % Immature Granulocytes 0.4 % (0-0.5); % Lymphocytes 20.6 % (20.5-51.1); % Monocytes 7.2 % (1.7-9.3); % Neutrophils 63.6 % (42.2-75.2); Absolute Basophils 0.1 10^3/uL (0-0.2); Absolute Eosinophils 0.5 10^3/uL (0-0.7); Absolute Lymphocytes 1.6 10^3/uL (1.2-3.4); Absolute Monocytes 0.6 10^3/uL (0.1-0.6); Absolute Neutrophils 4.9 10^3/uL (1.4-6.5); Hematocrit 38.8 % (39.0-52.0); Hemoglobin 12.6 g/dL (13.0-18.0); Mean Corp Hgb Conc. 32.5 g/dL (33.0-37.0); Mean Corpuscular Hgb 30.1 pg (27.0-31.0); Mean Corpuscular Volume 92.8 fL (80.0-94.0); Mean Platelet Volume 8.9 fL (7.4-10.4); Nucleated Red Blood Cells % 0 % (-); Platelet Count 173 10^3/uL (130-400); Red Blood Cell Count 4.18 10^6/uL (4.70-6.10); Red Cell Dist. Width 14.1 % (11.5-14.5); White Blood Cell Count 7.8 10^3/uL (4.8-10.8)
[2024-05-13 18:26] LABS: ALT (SGPT) 22 U/L (0-50); AST (SGOT) 26 U/L (17-59); Albumin 4.3 g/dl (3.5-5.0); Alkaline Phosphatase 52 U/L (38-126); Blood Urea Nitrogen 19 mg/dl (9-20); Calcium 8.8 mg/dl (8.4-10.2); Carbon Dioxide 32 mmol/L (22-30); Chloride 101 mmol/L (98-107); Glucose 70 mg/dl (70-99); Lipase 114 U/L (23-300); Potassium 4.2 mmol/L (3.5-5.1); Sodium 139 mmol/L (135-145); Total Bilirubin 0.7 mg/dl (0.2-1.3); Total Protein 6.8 g/dl (6.3-8.2); eGFR > 60.00
[2024-05-13 18:37] LABS: Troponin I < 0.012 ng/ml
--- NOTE | 2024-05-13 19:10 | ED.GENMED ---
History of Present Illness
General
Chief Complaint: Chest Pain
Source: patient
Exam Limitations: none
Time Seen by Provider: 05/13/24 18:45
History of Present Illness
History of Present Illness:
This is a 74 year old male that comes in with c/o chest pain. 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 States that he see's a specimen processor at [facility] and he does ECHO's, Stress test, ECG and a MARTHA. States that his Prolapse is Moderate to
severe. States that he started with some chest discomfort on Saturday but then it got better. States that it seemed to be related to him lifting some heavy wood. States that it then felt better on the weekend and today the pain seemed a little worse.
States that this is in the center of his chest and comes and goes. States that he rated a 2-3/10 but at this time it is mild and a 1/10. States that it does comes and goes. States that he felt a little lightheaded. Denies any fever, chills, SOB,
abd pain, nausea, vomiting, diarrhea, headache, urinary burning.
Past History
Past History
ED Past Medical History: Cancer (Skin Cancer) and Other (Mitrol valve problems, Left patella fracture, Torn retina, Rheumatic fever)
ED Past Surgical History: Tonsilectomy (and adenoids) and Other (Hernia repair, )
Social History
Tobacco: Former smoker
Alcohol: Daily (Wine 1-2 glasses)
Personal: (Lives with someone for the past 20 years)
Living: with family
Review of Systems
Review of Systems
All Other Systems: ROS reviewed and negative except as documented in HPI and ROS
Constitutional: Reports no symptoms; Denies fever or chills
EENT: Reports no symptoms
Respiratory: Denies cough or trouble breathing
Cardiac: Reports chest pain
ABD/GI: Reports no symptoms; Denies abdominal pain, nausea, vomiting or diarrhea
: Reports no symptoms; Denies dysuria, frequency or urgency
Musculoskeletal: Reports no symptoms
Skin: Reports no symptoms
Neurological: Reports other (lightheaded); Denies dizzy or headache
Psychiatric: Reports no symptoms
Phy Exam
General Physical Exam
General Presentation: well appearing and no apparent distress
General age: appears stated age
General Skin: warm and dry
General Habitus: elderly
General Mental: alert
General Hydration: appears well hydrated
ENT Exam
ENT Exam: TM's normal, pharynx normal and neck supple
Eye Exam
Eye Exam: EOMI
Cardiovascular Exam
Cardiovascular Exam: regular rate/rhythm, no edema, normal peripheral pulses and other (Murmur)
Pulmonary Exam
Pulmonary Exam: lungs clear, no respiratory distress, no rales, chest non tender, no crackles, no rhonchi, no wheezing and no cough
Gastrointestinal Exam
Gastrointestinal Exam: normal bowel sounds, non tender, soft, no organomegaly, no pulsatile mass and non distended
Musculoskeletal Exam
Musculoskeletal Exam: full ROM and no edema
Skin Exam
Skin Exam: normal color, warm/dry, no rash and no petechia
Psychiatric Exam
Psychiatric Exam: normal mood/affect
Scores
Heart Score for Chest Pain Patients
STEMI patient?: No
History: Slightly or Non-Suspicious
ECG: Normal
Age: >/= 65 years
Risk Factors: 1 or 2 Risk Factors
Troponin: </= Normal Limit
Heart Score for Chest Pain Patients: 3
Heart Score Risk: 2.5% MACE over next 6 weeks
Course
Orders/Labs/Results
Orders:
Orders
05/13/24 17:44
Electrocardiogram (*1) Urgent
Reason for Study: Chest Pain
EKG- Treatment ONCE
05/13/24 17:52
CR Chest - 2 Views Urgent
Comment:
Reason For Exam: chest pain
05/13/24 18:00
Complete Blood Count/With Diff Urgent
Comprehensive Metabolic Panel Urgent
Lipase Urgent
Troponin I Urgent
05/13/24 19:08
Acetaminophen [Tylenol] 1,000 mg PO NOW STA
05/13/24 19:09
EKG- Treatment ONCE
05/13/24 20:49
Troponin I Urgent
05/13/24 21:00
Electrocardiogram (*1) Urgent
Reason for Study: Chest Pain
Other Reason for Exam: Repeat with Troponin
Abnormal Lab Results
05/13/24
18:00
RBC 4.18 L 10^6/uL
(4.70-6.10)
Hgb 12.6 L g/dL
(13.0-18.0)
Hct 38.8 L %
(39.0-52.0)
MCHC 32.5 L g/dL
(33.0-37.0)
Eosinophils % 6.9 H %
(0-6)
Carbon Dioxide 32 H mmol/L
(22-30)
05/13/24 18:00
05/13/24 18:00
H/H slightly low. Carbon dioxide slightly elevated. Troponin <0.012, Lipase normal at 114
Second Troponin <0.012
Vital Signs
Initial and Last Documented VS:
Initial Vital Signs
Temp Pulse Resp BP Pulse Ox
97.8 F 75 16 131/78 100
05/13/24 17:47 05/13/24 17:47 05/13/24 17:47 05/13/24 17:47 05/13/24 17:47
Last Documented Vital Signs
Temp Pulse Resp BP Pulse Ox
97.8 F 61 16 117/72 100
05/13/24 17:47 05/13/24 20:30 05/13/24 17:47 05/13/24 20:00 05/13/24 20:30
MDM/Problems Addressed
Differential Diagnosis Includes:
Coronary syndrome. Musculoskeletal,
MDM/Problems Addressed:
This is a 74 year old male that comes in with c/o chest pain in the center of his chest. States that this started on Saturday and comes and goes. States that today it just seemed a little worse and [place]
Will check labs, Chest x-ray, Give Tylenol for discomfort as may be Musculoskeletal. Patient states that his Support Manager is at [facility] and he is a personal friend. State that it is very easy for him to get into see patient. Explained that as long as
Troponin, chest x-ray are normal. Patient will be able to go home and follow up with his Support Manager.
Repeat ECG: rate 62, NSR, Left axis. Normal QS, Negative for ischemia.
Back into see patient. Explained that his Second Troponin is also normal. ECG is normal. Patient states that it is hard to tell if the Tylenol help as the pain is gone. Will have patient follow up with his specimen processor. Return with increased pain,
or any other concerns.
Chronic conditions affecting care:
MVP,
Acute Exacerbation and/or Progression of Chronic Illness:
NA
*Radiology
Radiology exam reviewed: preliminary read by ED provider (Chest- Negative for active disease)
*Pulse Oximetry
Patient hypoxic: no
*EKG
Interpreted by ED Provider?: Yes
Heart Rate: 73
Rate: normal
Rhythm: sinus
Silva: left axis deviation
Interval: normal interval
QRS Pattern: normal QRS
Ischemia: no ischemia
*Energy Professional Interpretation
Rate: normal
Heart Rate: 68
Rhythm: sinus
*Critical Care Note
Total Time (30-74mins, 75-104mins- exclusive of procedures): Not Applicable
ED Attending Note
-
Portions of this chart may have been created with voice recognition software.� Occasional wrong word or��sound alike� substitutions may have occurred due to the inherent limitations of voice recognition software.
Discharge Plan
Departure
Patient Disposition: Home (Routine Discharge)
Date of Disposition: 05/13/24
Time of Disposition: 21:34
Patient with high blood pressure during this ER visit?: No
Condition: Good
Covid-19: Not Applicable
Discharge Problem:
Chest pain
Instructions: Chest Pain NON-[facility] Support Manager Follow Up
Prescriptions:
No Action
multivitamin Tablet
1 tab PO DAILY
omeprazole 20 mg capsule,delayed release(DR/EC)
20 mg PO DAILY
rosuvastatin 10 mg tablet
10 mg PO HS
icosapent ethyl [Vascepa] 1 gram capsule
1 g PO QID
acetaminophen 325 mg Tablet
650 mg PO Q4HPRN PRN (Reason: mild pain/[place]/temp> 100.4F) Qty: 1 0RF
sulfamethoxazole-trimethoprim [Bactrim DS] 800-160 mg tablet
1 tab PO BID Qty: 14 0RF
Rx Instructions:
stop if you develop rash or any other reactions including headache
(DME) iodoform 1/4 X 5 '-yard bandage
See Rx Instructions .Route Qty: 12 0RF
Rx Instructions:
As directed
(DME) gauze bandage 3 X 3 ' bandage
See Rx Instructions .Route Qty: 10 0RF
Rx Instructions:
As directed
Referrals:
Roman Milton MD [Family Provider] - Follow up in 2-3 days
Activity Restrictions/Additional Instructions:
As discussed, your blood work is normal. Your Chest x-ray is negative for any acute process. Please follow up with your Support Manager for further evaluation. IF YOU HAVE INCREASED OR CHANGING PAIN, SHORTNESS OF BREATH OR YOU HAVE ANY OTHER CONCERNS
PLEASE RETURN TO THE EMERGENCY ROOM
Interventions
Interventions:
*Risk Screen - Suicide Last Done: 05/13/24 17:47
*General Assessment Last Done: 05/13/24 19:20
*Neglect/Abuse Screening Last Done: 05/13/24 17:52
*ED COVID-19 Vaccine History Last Done: 05/13/24 19:20
ED- Cardiac Assessment Last Done: 05/13/24 19:21
Discharge Date and Time
Print Language: CITIZEN [place]
[2024-05-13] MEDS: TYLENOL 1000 MG PO (19:18)
[2024-05-13 19:19] VITALS: BP 128/78
[2024-05-13 19:50] VITALS: BP 119/76
[2024-05-13 20:00] VITALS: BP 117/72
[2024-05-13 21:23] LABS: Troponin I < 0.012 ng/ml
== END 2024-05-13 22:21 | disposition home or self-care (01) ==
LOC: EMR 17:43
PROVIDERS: Clinical Nurse Specialist Family Health; Emergency Medicine; EMERGENCY PHYSICIAN Emergency Medicine; FAMILY PHYSICIAN Internal Medicine Sports Medicine
DX: R07.89 Other chest pain (principal); Z85.828 Personal history of other malignant neoplasm of skin; Z87.891 Personal history of nicotine dependence
CPT/HCPCS: 99283; 71046; 80053; 83690; 84484; 85025; 93005